=== PATIENT | female | born 1965 | race Caucasian/White ===

== ENCOUNTER → 2017-01-31 | Outpatient (CLI) | payer OTHER ==
[~2017-01-31] MED LIST: GADOBUTROL 10 ML VIAL IVP ONE
== END ==
LOC: FIMAGING 07:22
PROVIDERS: ATTEND Neurological Surgery
DX: M47.896 Other spondylosis, lumbar region (principal); M48.06 Spinal stenosis, lumbar region; M99.73 Connective tissue and disc stenosis of intervertebral foramina of lumbar region; M89.38 Hypertrophy of bone, other site; M48.02 Spinal stenosis, cervical region; M99.71 Connective tissue and disc stenosis of intervertebral foramina of cervical region
CPT/HCPCS: A9585

== ENCOUNTER → 2017-01-31 | Outpatient (CLI) | payer OTHER | LOC: FIMAGING 09:31 | PROVIDERS: ATTEND Neurological Surgery | DX: M50.321 Other cervical disc degeneration at C4-C5 level (principal); M50.322 Other cervical disc degeneration at C5-C6 level; M50.323 Other cervical disc degeneration at C6-C7 level; M47.892 Other spondylosis, cervical region; M43.16 Spondylolisthesis, lumbar region; M47.896 Other spondylosis, lumbar region; M47.27 Other spondylosis with radiculopathy, lumbosacral region ==

== ENCOUNTER 2017-05-21 15:28 | Inpatient (IN) | payer OTHER ==
--- NOTE | 2017-05-21 15:45 | EDPHY ---
H & P Time Seen by Provider: 05/21/17 15:29 HPI/ROS: CHIEF COMPLAINT: Post-operative left leg pain HISTORY OF PRESENT ILLNESS: This patient is a 52-year-old female status 2.5 weeks post L4-L5 fusion who presents to the Emergency Department complaining of throbbing left leg pain beginning two days prior to arrival. She reports that she was healing appropriately following the surgery and was able to stop taking pain medications last week. Two days prior to arrival, she experienced acute onset paresthesias to the posterior aspect of her left leg and to her ankle and toes followed by radiating painful radiculopathy to the same aspects of her lower extremity. She has a history of right-sided sciatica for which she had a laminectomy in 2007. She describes her pain today as similar to that prior episode. She denies midline lumbar pain or extremity weakness. She contacted Dr. De Los Santos's office today and was referred to the Emergency Department for MRI of her lumbar spine. She continues to take Flexeril as prescribed post-surgery and did take two doses of oxycodone and one dose of gabapentin at 1445 today without improvement to her pain. REVIEW OF SYSTEMS: Constitutional: No fever, no chills Eyes: No visual changes ENT: No sore throat Respiratory: No cough, no shortness of breath Cardiac: No chest pain Gastrointestinal: No nausea, no vomiting, no abdominal pain Genitourinary: No hematuria, no dysuria Musculoskeletal: As in HPI Skin: No rash Neurological: As in HPI Psychiatric: No depression Past Medical/Surgical History: 1. L4-L5 fusion performed by Dr. Maxwell De Los Santos on 05/04 2. Laminectomy of lumbar spine in 2007 Social History: Non-smoker Smoking Status: Never smoked Physical Exam: General Appearance: Alert, appears in pain Eyes: Pupils equal and round, no conjunctival pallor or injection ENT, Mouth: Mucous membranes moist Neck: Normal inspection Respiratory: Lungs are clear to auscultation Cardiovascular: Regular rate and rhythm Gastrointestinal: Abdomen is soft and non- tender Neurological: A&O, normal sensation Skin: Warm and dry, no rash Extremities: Tenderness over the left buttock, left patellar DTR 2+, motor strength 5/5 to the left lower extremity including dorsiflexion of the ankle and toe Psychiatric: Mood and affect normal Constitutional: Initial Vital Signs Temperature (C) 36.8 C 05/21/17 15:35 Heart Rate 92 05/21/17 15:35 Respiratory Rate 17 05/21/17 15:35 Blood Pressure 124/83 H 05/21/17 15:35 O2 Sat (%) 94 05/21/17 15:35 O2 Delivery Mode Room Air Allergies/Adverse Reactions: aspirin Allergy (Intermediate, Verified 04/21/13 16:48) stomach upset Home Medications: Medication Instructions Recorded Acetaminophen [Tylenol Tablet] 500 mg PO Q8 PRN 04/21/13 Tamoxifen Citrate 20 mg PO DAILY 04/21/13 Effexor 05/21/17 Flexeril 05/21/17 GABAPENTIN 05/21/17 Oxycodone HCl 05/21/17 Medical Decision Making - Diagnostics Imaging Results: Imaging Impressions Lumbar Spine X-Ray 05/21/17 17:54 Impression: Chronic degenerative L3-L4 disk disease above the patient's lumbar fusion. ED Course/Re-evaluation: 52-year-old female status 2.5 weeks post L4-L5 fusion performed by Dr. Maxwell De Los Santos arrives at the request of Dr. De Los Santos's office for MRI of the lumbar spine. Apparently, she was healing appropriately following the procedure but now presents with left-sided sciatica similar to prior episode of right-sided sciatica preceding a laminectomy performed in 2007. At time of presentation, she appears in pain. She has tenderness to the left buttocks but normal motor strength and 2+ DTR to her left leg. Will proceed with MRI. The patient declines steroids at this time. IV established. 1.5mg IV Dilaudid, 1mg IV Ativan, and 4mg IV Zofran administered. 1913: Results reported to me by Dr. Giordano, radiology, indicate a fluid collection in L4-L5 region that may be the source of the patient's pain. Will consult with on-call neurosurgeon. 1926: Consultation with Dr. Nogueira, neurosurgery, who has reviewed the study and will admit the patient for pain management and further evaluation. I discussed this plan with the patient who is agreeable to this. Differential Diagnosis: The differential diagnosis for the patient's back pain included but was not limited to musculo-skeletal pain, epidural abscess, herniated disk, spinal fracture, and intra-abdominal causes including urinary system. - Data Points Medications Given: Discontinued Medications Hydromorphone HCl (Dilaudid) 0.5 mg IVP EDNOW ONE Stop: 05/21/17 15:53 Last Admin: 05/21/17 16:20 Dose: 0.5 mg Lorazepam (Ativan Injection) 1 mg IVP EDNOW ONE Stop: 05/21/17 17:20 Last Admin: 05/21/17 17:23 Dose: 1 mg Ondansetron HCl (Zofran) 4 mg IVP EDNOW ONE Stop: 05/21/17 15:53 Last Admin: 05/21/17 16:20 Dose: 4 mg Departure - Departure Disposition: [facility] Inpatient Acute Clinical Impression: Severe lumbar pain Condition: Fair Report Scribed for: Lorie Mejia Report Scribed by: Susan Montanez Date of Report: 05/21/17 Time of Report: 15:45 Physician Review and Approval Statement: 05/21/17 15:45 Portions of this note were transcribed by a director biomedical engineering. I personally performed a history, physical exam, medical decision making, and confirmed accuracy of information the transcribed note.
[2017-05-21] MEDS ORDERED: HYDROmorphONE/DILAUDID 1 MG/ML SYR IVP ONE ×2 (15:52→19:25)
[2017-05-21] MEDS ORDERED: ONDANSETRON 4 MG/2 ML VIAL IVP ONE (15:52)
[2017-05-21] MEDS ORDERED: LORazepam 2 MG/ML INJ ONE (17:16)
[2017-05-21] MEDS ORDERED: LORazepam 2 MG/ML INJ IVP ONE (17:19)
[2017-05-21] MEDS ORDERED: GADOBUTROL 10 ML VIAL IVP ONE (18:07)
[2017-05-21] MEDS ORDERED: DIAZEPAM 5 MG TAB PO PRN (19:40)
[2017-05-21] MEDS ORDERED: ONDANSETRON 4 MG/2 ML VIAL IVP PRN (19:43)
[2017-05-21] MEDS: oxyCODONE IR 5 MG TAB PO PRN (22:05)
[2017-05-21] MEDS: HYDROmorphONE/DILAUDID 1 MG/ML SYR IVP PRN (23:13)
[2017-05-21] MEDS: ACETAMINOPHEN 325 MG TAB PO PRN (23:26)
[2017-05-22] MEDS: CYCLOBENZAPRINE 10 MG TAB PO SCH ×4 (00:37→22:01)
[2017-05-22] MEDS: HYDROmorphONE/DILAUDID 2 MG TAB PO PRN ×2 (06:09→12:27)
[2017-05-22] MEDS: HYDROmorphONE/DILAUDID 1 MG/ML SYR IVP PRN ×4 (06:19→23:59)
[2017-05-22] MEDS: oxyCODONE IR 5 MG TAB PO PRN ×2 (06:38→20:52)
--- NOTE | 2017-05-22 10:44 | PDGENHP ---
History and Physical - Chief Complaint leg pain - History of Present Illness Seen and examined agree with handp dictated by Peace Panchal NP History Information - Allergies/Home Medication List Allergies/Adverse Reactions: aspirin Allergy (Intermediate, Verified 04/21/13 16:48) stomach upset Home Medications: Acetaminophen [Tylenol ES 500 mg (*)] 500 mg PO Q8H PRN 05/21/17 [Last Taken 05:45 1000MG] Cyclobenzaprine [Flexeril 10 MG (*)] 10 mg PO TID 05/21/17 [Last Taken 05/21/17 05:30] Gabapentin [Neurontin 100 MG (*)] 100 - 200 mg PO QID PRN 05/21/17 [Last Taken 05/21/17 14:45 3 CAPS] Tamoxifen Citrate 20 mg PO DAILY 05/21/17 [Last Taken 05/21/17] Venlafaxine HCl [Venlafaxine 75MG (*)] 225 mg PO DAILY 05/21/17 [Last Taken ] oxyCODONE IR [Oxycodone Ir (*)] 5 - 10 mg PO Q3H PRN 05/21/17 [Last Taken 14:45 8 TABS] I have personally reviewed and updated: family history, medical history, social history, surgical history - Social History Smoking Status: Never smoked Physical Exam Temp Pulse Resp BP Pulse Ox 36.6 C 79 17 114/81 H 95 05/22/17 08:00 05/22/17 08:00 05/22/17 08:00 05/22/17 08:00 05/22/17 08:00 O2 (L/minute) 1.5 Assessment & Plan Assessment: Severe lumbar pain (Acute)
[2017-05-22] MEDS: GABAPENTIN 100 MG CAP PO SCH ×3 (10:54→22:01)
[2017-05-22] MEDS: VENLAFAXINE XR 75 MG CAP PO SCH ×2 (10:54→13:39)
[2017-05-22] MEDS: TAMOXIFEN CITRATE 10 MG TAB PO SCH (10:54)
[2017-05-22] MEDS ORDERED: MAGNESIUM HYDROXIDE 30 ML UDCUP PO PRN (13:27)
[2017-05-22] MEDS ORDERED: BISACODYL 10 MG SUPP PR PRN (13:27)
[2017-05-22] MEDS ORDERED: LACTULOSE 20 GM/30 ML UDCUP PO PRN (13:27)
--- NOTE | 2017-05-22 13:43 | GHP ---
[f rep st] HISTORY AND PHYSICAL DATE OF ADMISSION: 05/21/2017 CHIEF COMPLAINT: Left leg pain. HISTORY OF PRESENT ILLNESS: The patient is a 52-year-old female with a history of an L4-[address] De Los Santos on May 04, 2017 at [facility] [place]. She was doing great following surgery and had been off all of her pain medications one week after surgery. Unfortunately, this past Thursday she began to develop severe pain in her left leg which she describes as being in her left buttock and extending down the posterior aspect of her left leg into the top of her left foot. She had some left leg numbness preoperatively but feels that has resolved. She denies any lower back pain. She restarted her pain medications and began taking a low-dose gabapentin which did not improve her symptoms and she presented to the emergency room at [facility] on May 21, 2017 for severe pain exacerbation of her left lower extremity. She denies any weakness or issues with her bowel or bladder. She denies any saddle anesthesia. She denies any fever, chills or any difficulties with her incision. PAST MEDICAL HISTORY: Lumbar laminectomy in 2007. L4-5 fusion on May 04, 2017. History of breast cancer in 2011. PAST SURGICAL HISTORY: L4-[address] De Los Santos on May 04, 2017. Laminectomy of lumbar spine in 2007. FAMILY HISTORY: The patient does not have any family history of cardiac or lung disease or diabetes. SOCIAL HISTORY: The patient does not smoke cigarettes. The patient does not use illegal drugs. MEDICATIONS: Oxycodone 5 mg, diazepam 5 mg, acetaminophen 650 mg, tamoxifen 20 mg daily, gabapentin 100 mg 3 times per day, Effexor 225 mg daily. ALLERGIES: The patient has an allergy to aspirin, states it upsets her stomach. REVIEW OF SYSTEMS: A 10-point review of systems was completed and otherwise negative aside from what was stated in the HPI. PHYSICAL EXAMINATION: VITAL SIGNS: Blood pressure 114/81, heart rate 79, respiratory rate 17, oxygen saturation 95% on 1.5 L nasal cannula, temperature 36.6 Celsius. HEENT: Head is normocephalic, atraumatic. Pupils are equal, round and reactive to light. EOMI is intact. Nose is patent. NECK: Soft and supple. No tenderness. Full range of motion with flexion and extension, lateral bearing rotation in cervical and lumbar spine. RESPIRATORY/CARDIAC: Deferred. ABDOMEN: Soft and nontender. GENITOURINARY/RECTAL: Deferred. NEUROLOGIC: The patient is awake, alert and oriented to name, place, location and situation. Memory is intact to immediate, past and current events. Speech : No aphagia. Cranial nerves 2-12 are grossly intact. Motor: The patient has 5/5 strength in all muscle groups in the bilateral extremities to include deltoids, biceps, triceps, brachioradialis, wrist flexion and extensors, mobile qa tester, intrinsic fingers, iliopsoas, quadriceps, hamstring, plantar flexion, dorsiflexion and EHL testing. Sensation is grossly intact to light touch throughout all dermatome distributions in bilateral lower extremities. Negative straight leg testing, negative ARNAUD test. Reflexes, biceps, triceps, brachioradialis, knee jerk and ankle jerk are 2+/4. Toes are downgoing bilaterally. Howard's sign is negative. Babinski is negative and there is no evidence of clonus. DIAGNOSTICS: MRI of the lumbar spine performed with and without contrast on May 21, 2017 demonstrates a 2.5 cm fluid collection in the L4-5 disc space which most likely represents a postoperative seroma. There are multilevel degenerative changes with moderate L2-L3 and severe L3-L4 central canal stenosis. There is a broad-based circumferential disc bulging slightly eccentric leftward at L5-S1 which results in left neural foraminal narrowing. X -rays of the lumbar spine performed on May 21, 2017 demonstrate chronic degenerative changes at L3-L4 above the patient's lumbar fusion. ASSESSMENT/PLAN: The patient is a 52-year-old female who is status post L4-L5 transforaminal interbody fusion with Dr. De Los Santos on May 04, 2017 at [facility] [place]. She was doing great postoperatively and was pain free and off all pain medications approximately one week after surgery. Three to four days ago she developed intractable severe left leg pain which she describes in an S1 distribution. She has tried some low-dose gabapentin as well as restarting her narcotic medications which have not been able to alleviate her pain. She was brought to the emergency room, underwent a new MRI of the lumbar spine which demonstrated stenosis at L2-L3 and L3-L4 as well as very severe left lateral stenosis at L5-S1 due to facet arthropathy and a moderate disc protrusion. We will have her undergo a left S1 injection today with Interventional Radiology in hopes for some relief of her pain. She will be placed on the operating room schedule on Thursday to address the areas above and below her present fusion. She is scheduled for an L3-L4 and L5-S1 TLIF which will extend her fusion from L3 to S1. The patient understands there is a high likelihood that at some point she will end up needing more lumbar surgery extending into the L2 level of her back. The patient understands the risks and benefits involved with surgery and wishes to proceed. The patient was seen by Dr. Nogueira at the bedside as well this morning. /[id number]/MODL MTDD
[2017-05-22] MEDS ORDERED: MIDAZOLAM 2 MG/2 ML VIAL ONE (14:14)
[2017-05-22] MEDS ORDERED: NALOXONE HCL 0.4 MG/ML INJ ONE (14:14)
[2017-05-22] MEDS ORDERED: fentaNYL 100 MCG/2 ML INJ ONE (14:14)
[2017-05-22] MEDS ORDERED: FLUMAZENIL 0.5 MG/5 ML MDV IVP ONE (14:14)
[2017-05-22] MEDS ORDERED: TRIAMCINOLONE ACETONIDE 200 MG/5 ML MDV IM ONE (15:01)
[2017-05-22] MEDS ORDERED: BUPIVACAINE 0.5% 30 ML SDV ONE (15:01)
[2017-05-22] MEDS ORDERED: IOPAMIDOL (ISOVUE-M 300) 15 ML VIAL ONE (15:01)
[2017-05-22] MEDS: POLYETHYLENE GLYCOL 3350 17 GM PKT PO PRN (16:15)
[2017-05-22] MEDS: ACETAMINOPHEN 325 MG TAB PO PRN (20:52)
[2017-05-22] MEDS: SENNOSIDES/DOCUSATE SODIUM TAB PO SCH (20:52)
[2017-05-23] MEDS ORDERED: VENLAFAXINE XR 75 MG CAP PO SCH (09:00)
[2017-05-23] MEDS: VENLAFAXINE XR 75 MG CAP PO SCH (09:57)
[2017-05-23] MEDS: TAMOXIFEN CITRATE 10 MG TAB PO SCH (09:58)
[2017-05-23] MEDS: SENNOSIDES/DOCUSATE SODIUM TAB PO SCH ×2 (09:58→21:53)
[2017-05-23] MEDS: GABAPENTIN 100 MG CAP PO SCH ×3 (09:58→21:52)
[2017-05-23] MEDS: POLYETHYLENE GLYCOL 3350 17 GM PKT PO PRN (09:58)
[2017-05-23] MEDS: CYCLOBENZAPRINE 10 MG TAB PO SCH ×3 (09:58→21:53)
--- NOTE | 2017-05-23 12:18 | NEUSURGPN ---
Assessment/Plan: 52F s/p recent L[address] De Los Santos back with severe Left leg pain in a S1 distribution who is now PPD1 s/p Left S1 SNRB with dramatic improvement in her symptoms. She will stay in house another day to ensure it is not just the anesthetic effect and is tentatively booked for L5/S1 TLIF/extension of fusion with Dr. De Los Santos when he returns on Thursday. Subjective: feels much better after her injection yesterday Objective: AAOx3 NAD Fluent and Pleasant ROMERO 03/27 to command SILT, SIPP gait deferred Urinary Catheter in Place: No Neurosurgery Physical Exam - Vitals, I&O, Labs I and O 05/22/17 05/23/17 05/24/17 05:59 05:59 05:59 Intake Total 240 1620 Output Total 2 Balance 240 1618 Weight 90.718 kg Intake: Oral (ml) 240 1220 IV Intake (ml) 400 Output: Urine (ml) 2 Toilet 2 Other: Intake Quantity Yes Yes Sufficient Number of Voids 1 Toilet 2 Vital Signs Temp Pulse Resp BP Pulse Ox 36.4 C 90 17 126/89 H 95 05/23/17 11:23 05/23/17 11:23 05/23/17 11:23 05/23/17 11:23 05/23/17 11:23 ICD10 Worksheet Patient Problems: Problems Problem Status Onset Severe lumbar pain Acute
[2017-05-23] MEDS: ENOXAPARIN 40 MG/0.4 ML SYR SC SCH (16:10)
[2017-05-23] MEDS: oxyCODONE IR 5 MG TAB PO PRN (16:12)
[2017-05-24] MEDS: GABAPENTIN 100 MG CAP PO SCH ×3 (09:39→21:31)
[2017-05-24] MEDS: TAMOXIFEN CITRATE 10 MG TAB PO SCH (09:39)
[2017-05-24] MEDS: CYCLOBENZAPRINE 10 MG TAB PO SCH ×3 (09:40→21:30)
[2017-05-24] MEDS: SENNOSIDES/DOCUSATE SODIUM TAB PO SCH ×2 (09:40→21:31)
[2017-05-24] MEDS: VENLAFAXINE XR 75 MG CAP PO SCH (09:40)
[2017-05-24] MEDS: POLYETHYLENE GLYCOL 3350 17 GM PKT PO PRN (09:40)
[2017-05-24] MEDS: ENOXAPARIN 40 MG/0.4 ML SYR SC SCH (10:08)
--- NOTE | 2017-05-24 11:08 | NEUSURGPN ---
Assessment/Plan: 52F s/p recent L[address] De Los Santos back with severe Left leg pain in a S1 distribution who is now PPD1 s/p Left S1 SNRB with improvement in her symptoms. She still is requiring pain medications and does notices some increase with particular movements. She will try to increase activity today. Will re-evaluate tomorrow. If pain still improved can d/c home. If pain still present/increased with basic acitvities will move foward with surgery. Discussed with Dr. De Los Santos. Subjective: pain improved but will increase with movement Objective: NAD A&Ox3 MAEx4 5/5 and equal in BUE and BLE. Sensation intact - Physician Discussed Patient with : Filiberto Neurosurgery Physical Exam - Vitals, I&O, Labs I and O 05/23/17 05/24/17 05/25/17 05:59 05:59 05:59 Intake Total 1620 1350 Output Total 2 7 Balance 1618 1343 Intake: Oral (ml) 1220 1350 IV Intake (ml) 400 Output: Urine (ml) 2 7 Toilet 2 7 Other: Intake Quantity Yes Yes Sufficient Number of Voids Toilet 2 Number of Stools Toilet 2 Vital Signs Temp Pulse Resp BP Pulse Ox 36.9 C 78 16 106/78 98 05/24/17 07:08 05/24/17 07:08 05/24/17 07:08 05/24/17 07:08 05/24/17 07:08 ICD10 Worksheet Patient Problems: Problems Problem Status Onset Severe lumbar pain Acute
[2017-05-24] MEDS: oxyCODONE IR 5 MG TAB PO PRN (21:33)
[2017-05-25 04:28] VITALS: RESP 16
[2017-05-25 07:41] VITALS: BP 118/94; PULSE 92; TEMP 98.3; O2SAT 95
--- NOTE | 2017-05-25 08:05 | NEUSURGPN ---
Assessment/Plan: Assessment: 52F s/p recent L[address] De Los Santos that presented with back with severe left leg pain in a S1 distribution Plan: -s/p left S1 SNRB with near resolution of her symptoms -she still is requiring some pain medications but is much better after her injection -PT/OT -pt seen by Dr De Los Santos and pt wants to hold off on any surgery today -surgery cancelled -will work on increasing the Gabapentin -pt agree to dc home -follow up with us later this week via phone for an update -call with any questions or concerns -pt understands and agrees Subjective: Awake and alert. NAD. Eating/drinking and voiding. No f/c/n/v/d. No lundberg/neck/ chest/abd or gu complaints. Objective: AAO x 3, PERRLA/EOMI no droop CN 2-12 grossly intact +lt touch 5/5 BUE/BLE = CDI Neuro Check Frequency: per routine Urinary Catheter in Place: No - Physician Discussed Patient with Dr.: Filiberto Patient Seen by : Filiberto Neurosurgery Physical Exam - Vitals, I&O, Labs I and O 05/24/17 05/25/17 05/26/17 05:59 05:59 05:59 Intake Total 1350 2350 Output Total 7 Balance 1343 2350 Intake: Oral (ml) 1350 2350 Output: Urine (ml) 7 Toilet 7 Other: Intake Quantity Yes npo Sufficient Number of Voids Toilet 2 2 Number of Stools Toilet 2 1 Vital Signs Temp Pulse Resp BP Pulse Ox 36.8 C 92 16 118/94 H 95 05/25/17 07:40 05/25/17 07:40 05/25/17 04:00 05/25/17 07:40 05/25/17 07:40 ICD10 Worksheet Patient Problems: Problems Problem Status Onset Severe lumbar pain Acute
[2017-05-25] MEDS ORDERED: GABAPENTIN 100 MG CAP PO SCH (09:00)
[2017-05-25] MEDS: CYCLOBENZAPRINE 10 MG TAB PO SCH (09:31)
[2017-05-25] MEDS: VENLAFAXINE XR 75 MG CAP PO SCH (09:31)
[2017-05-25] MEDS: TAMOXIFEN CITRATE 10 MG TAB PO SCH (09:31)
[2017-05-25] MEDS: ENOXAPARIN 40 MG/0.4 ML SYR SC SCH (09:35)
[2017-05-25] MEDS: SENNOSIDES/DOCUSATE SODIUM TAB PO SCH (09:35)
[2017-05-25] MEDS ORDERED: ceFAZolin 2 GM/DEXTROSE 100 ML IV ONE (13:13)
[2017-05-25] MEDS ORDERED: GABAPENTIN 300 MG CAP PO SCH (21:00)
== END 2017-05-25 09:45 | disposition home or self-care (01) | DRG 552 ==
LOC: F2W 20:07
PROVIDERS: ADMIT Neurological Surgery; ATTEND Neurological Surgery
DX: M48.06 Spinal stenosis, lumbar region (principal); M48.07 Spinal stenosis, lumbosacral region; M51.27 Other intervertebral disc displacement, lumbosacral region; Z98.1 Arthrodesis status; Z85.3 Personal history of malignant neoplasm of breast; Z53.20 Procedure and treatment not carried out because of patient's decision for unspecified reasons
CPT/HCPCS: 96374; A9585; J1170; J2060; J2250; J2310; J2405; J3010; J3301; Q9967

== ENCOUNTER → 2017-06-19 | Outpatient (CLI) | payer OTHER | LOC: FIMAGING 11:42 | PROVIDERS: ATTEND Family Medicine | DX: R93.8 Abnormal findings on diagnostic imaging of other specified body structures (principal); N83.202 Unspecified ovarian cyst, left side; N88.8 Other specified noninflammatory disorders of cervix uteri ==

== ENCOUNTER → 2017-06-19 | Outpatient (CLI) | payer OTHER | LOC: FIMAGING 11:48 | PROVIDERS: ATTEND Nurse Practitioner | DX: Z09 Encounter for follow-up examination after completed treatment for conditions other than malignant neoplasm (principal); Z98.1 Arthrodesis status; M51.36 Other intervertebral disc degeneration, lumbar region ==

== ENCOUNTER → 2017-08-13 | Outpatient (CLI) | payer OTHER | LOC: FIMAGING 15:25 | PROVIDERS: ATTEND Nurse Practitioner | DX: M50.321 Other cervical disc degeneration at C4-C5 level (principal); M50.322 Other cervical disc degeneration at C5-C6 level; M50.323 Other cervical disc degeneration at C6-C7 level ==

== ENCOUNTER → 2017-08-13 | Outpatient (CLI) | payer OTHER | LOC: FIMAGING 15:22 | PROVIDERS: ATTEND Nurse Practitioner | DX: M48.02 Spinal stenosis, cervical region (principal); M50.321 Other cervical disc degeneration at C4-C5 level; M50.322 Other cervical disc degeneration at C5-C6 level; M50.323 Other cervical disc degeneration at C6-C7 level; Z98.1 Arthrodesis status ==

== ENCOUNTER → 2017-10-19 | Outpatient (CLI) | payer OTHER | LOC: FIMAGING 12:57 | PROVIDERS: ATTEND Psychologist Clinical | DX: Z98.1 Arthrodesis status (principal) ==

== ENCOUNTER → 2018-01-18 | Outpatient (CLI) | payer OTHER | LOC: FIMAGING 13:11 | PROVIDERS: ATTEND Nurse Practitioner | DX: M51.36 Other intervertebral disc degeneration, lumbar region (principal); Z98.1 Arthrodesis status ==

== ENCOUNTER → 2018-09-08 | Outpatient (CLI) | payer OTHER | LOC: FIMAGING 16:10 | PROVIDERS: ATTEND Family Medicine | DX: R06.00 Dyspnea, unspecified (principal); R05 Cough ==